=== PATIENT | female | born 2000 | race Caucasian/White ===

== ENCOUNTER 2023-10-22 07:09 | Outpatient (CLI) | payer OTHER, SELFPAY ==
--- NOTE | 2023-10-22 07:15 | CRLHL7_ITS ---
For Patients: As a result of the Century Cures Act, medical imaging exams and procedure reports are released immediately into your electronic medical record. You may view this report before your referring provider. If you have questions, please contact your health care provider. Indication: Headaches. Technique: Noncontrast sagittal T1 weighted, axial FLAIR, axial T2 weighted, and axial diffusion weighted sequences are provided. Comparison: No prior studies available for comparison at this institution. Findings: The ventricles, sulci and gyri are normal size, shape and contour for age. The midline structures are centrally located with no evidence of shift. There are no suspicious intra or extra-axial fluid collections. The pituitary gland, optic chiasm, pineal gland, and cerebellar tonsils are unremarkable. No pathologic susceptibility artifacts. No region of restricted diffusion. Expected flow voids in the cavernous carotids and basilar artery. Impression: Unremarkable noncontrast MRI of the head. Dictated by Mateus Natarajan MD @ 10/22/2023 9:57:48 AM (Electronically Signed)
== END 2023-10-22 07:10 | disposition home or self-care (01) ==
LOC: MRI 07:10
PROVIDERS: PCP Family Medicine; Visit Provider Physician Assistant Medical
DX: R51.9 Headache, unspecified (principal); G89.29 Other chronic pain
CPT/HCPCS: 70551

== ENCOUNTER 2024-06-08 13:19 | Outpatient (CLI) | payer OTHER, SELFPAY | END 2024-06-08 13:20 | disposition home or self-care (01) | PROVIDERS: PCP Family Medicine; Visit Provider Emergency Medicine | DX: Z11.1 Encounter for screening for respiratory tuberculosis (principal); Z13.6 Encounter for screening for cardiovascular disorders | CPT/HCPCS: 80061; 86480 ==